=== PATIENT | male | born 1980 | race Caucasian/White ===

== ENCOUNTER 2017-06-23 09:54 | Emergency (ER) | payer MEDICAID ==
[~2017-06-23] VITALS: Ht 182.9 cm; Wt 90.0 kg
[~2017-06-23 09:54] MED LIST: DIAZ5 PO; IBUP-232 PO
[2017-06-23 09:55] VITALS: BP 128/70; PULSE 68; RESP 16; TEMP 98.6; O2SAT 98
--- NOTE | 2017-06-23 10:21 | PD ---
HPI Chief Complaint: Headache Time Seen by Provider: 10:06 Travel History International Travel<30 days: No Contact w/Intl Traveler<30days: No Traveled to known affect area: No History of Present Illness HPI 36-year-old male complains of headache. Patient has history of traumatic brain injury and was seen at [facility] on May 30, 2017. Patient reportedly has bilateral intracranial hemorrhage. Patient was observed and discharged subsequently. Patient states that he has intermittent headache and vomiting since then. Patient had trouble with speech yesterday but not today. Patient has not been able to follow-up with a physician after discharge. Patient was given prescription for gabapentin and has been taking Tylenol for headache. Patient states that headache aching headache diffuse over the head. Patient states that headache has been intermittent. Patient denies any visual change. Patient denies any neck pain. Patient denies any chest pain or shortness of breath. Patient denies abdominal pain. Patient denies any fever chills. Patient denies any focal weakness or numbness of extremity. [facility] Social History Alcohol Use: No Tobacco Use: Yes Substance Use: Yes (pot) Allergies-Medications (Allergen,Severity, Reaction): Coded Allergies: No Known Allergies (Unverified Adverse Reaction, Unknown, 06/23/17) Reported Meds & Prescriptions Reported Meds & Active Scripts Active Ibuprofen 600 Mg Tab 600 Mg PO Q6H PRN Valium (Diazepam) 5 Mg Tab 5 Mg PO TID PRN Review of Systems General / Constitutional: No: Fever Eyes: No: Visual changes HENT: Positive: Headaches Cardiovascular: No: Chest Pain or Discomfort Respiratory: No: Shortness of Breath Gastrointestinal: Positive: Nausea, Vomiting, No: Abdominal Pain Genitourinary: No: Dysuria Musculoskeletal: No: Pain Skin: No Rash Neurologic: No: Weakness Psychiatric: No: Depression Endocrine: No: Polydipsia Hematologic/Lymphatic: No: Easy Bruising Physical Exam Narrative GENERAL: Well-nourished, well-developed patient. SKIN: Focused skin assessment warm/dry. HEAD: Normocephalic. EYES: No scleral icterus. No injection or drainage. Pupils 3 mm equal reactive. NECK: Supple, trachea midline. No JVD or lymphadenopathy. No neck tenderness. No meningismus. CARDIOVASCULAR: Regular rate and rhythm without murmurs, gallops, or rubs. RESPIRATORY: Breath sounds equal bilaterally. No accessory muscle use. GASTROINTESTINAL: Abdomen soft, non-tender, nondistended. MUSCULOSKELETAL: No cyanosis, or edema. BACK: Nontender without obvious deformity. No CVA tenderness. Neurologic exam: Patient's awake and alert oriented 3. No obvious focal neurological deficit. Data Data Last Documented VS Vital Signs Date Time Temp Pulse Resp B/P (MAP) Pulse Ox O2 Delivery O2 Flow Rate FiO2 06/23/17 10:30 Room Air 06/23/17 09:55 98.6 68 16 128/70 (89) 98 Orders Orders Complete Blood Count With Diff (06/23/17 10:12) Comprehensive Metabolic Panel (06/23/17 10:12) Prothrombin Time / Inr (Pt) (06/23/17 10:12) Act Partial Throm Time (Ptt) (06/23/17 10:12) Ct Brain W/O Iv Contrast(Rout) (06/23/17 10:12) Iv Access Insert/Monitor (06/23/17 10:12) Ecg Monitoring (06/23/17 10:12) Oximetry (06/23/17 10:12) Labs Laboratory Tests Test 06/23/17 10:24 White Blood Count 6.0 TH/MM3 Red Blood Count 4.67 MIL/MM3 Hemoglobin 15.0 GM/DL Hematocrit 41.4 % Mean Corpuscular Volume 88.5 FL Mean Corpuscular Hemoglobin 32.1 PG Mean Corpuscular Hemoglobin Concent 36.2 % Red Cell Distribution Width 12.6 % Platelet Count 209 TH/MM3 Mean Platelet Volume 7.3 FL Neutrophils (%) (Auto) 56.0 % Lymphocytes (%) (Auto) 31.0 % Monocytes (%) (Auto) 10.0 % Eosinophils (%) (Auto) 2.0 % Basophils (%) (Auto) 1.0 % Neutrophils # (Auto) 3.4 TH/MM3 Lymphocytes # (Auto) 1.9 TH/MM3 Monocytes # (Auto) 0.6 TH/MM3 Eosinophils # (Auto) 0.1 TH/MM3 Basophils # (Auto) 0.1 TH/MM3 CBC Comment AUTO DIFF Prothrombin Time 10.3 SEC Prothromb Time International Ratio 1.0 RATIO Activated Partial Thromboplast Time 24.6 SEC Blood Urea Nitrogen 13 MG/DL Creatinine 0.95 MG/DL Random Glucose 118 MG/DL Total Protein 7.8 GM/DL Albumin 4.2 GM/DL Calcium Level 9.1 MG/DL Alkaline Phosphatase 61 U/L Aspartate Amino Transf (AST/SGOT) 45 U/L Alanine Aminotransferase (ALT/SGPT) 31 U/L Total Bilirubin 0.6 MG/DL Sodium Level 139 MEQ/L Potassium Level 4.8 MEQ/L Chloride Level 106 MEQ/L Carbon Dioxide Level 27.4 MEQ/L Anion Gap 6 MEQ/L Estimat Glomerular Filtration Rate 91 ML/MIN MDM Medical Decision Making Medical Screen Exam Complete: Yes Emergency Medical Condition: Yes Interpretation(s) Last Impressions Head CT 06/23/17 1012 Signed Impressions: Service Date/Time: Friday, June 23, 2017 10:20 - CONCLUSION: No acute disease. Mushtaq Alonzo MD 11:10 AM. CBC within normal limit. CMP within normal limit. Differential Diagnosis Differential diagnosis including postconcussion syndrome, intracranial hemorrhage, dehydration, electrolyte imbalance. Narrative Course 36-year-old male with intermittent headache vomiting. History of TBI. Diagnosis Primary Impression: Postconcussion syndrome Patient Instructions: General Instructions Additional Instructions: Zofran as needed for nausea vomiting. Tylenol or ibuprofen for headache. Follow-up with neurologist and local physician. Med/Other Pt SpecificInfo: Prescription(s) given Scripts Promethazine (Phenergan) 25 Mg Tablet 25 MG PO Q6H Y for NAUSEA OR VOMITING, #20 TAB 0 Refills Prov: Teja Jaquez MD 06/23/17 Ondansetron Odt (Zofran Odt) 4 Mg Tab 4 MG SL Q6HR Y for Nausea/Vomiting, #12 TAB 0 Refills Prov: Teja Jaquez MD 06/23/17 Disposition: 01 DISCHARGE HOME Condition: Stable Teja Jaquez MD Jun 23, 2017 10:21
--- NOTE | 2017-06-23 10:39 | RADRPT ---
EXAM DATE/TIME: 06/23/2017 10:20 [place] COMPARISON: No previous studies available for comparison. INDICATIONS : Headache with nausea, vomiting. RADIATION DOSE: 56.35 CTDIvol (mGy) MEDICAL HISTORY : Recent skating accident pt in icu, marijuana SURGICAL HISTORY : ENCOUNTER: Initial ACUITY: 2 days PAIN SCALE: 10/10 LOCATION: Bilateral cranial TECHNIQUE: Multiple contiguous axial images were obtained of the head. Using automated exposure control and adj ustment of the mA and/or kV according to patient size, radiation dose was kept as low as reasonably a chievable to obtain optimal diagnostic quality images. DICOM format image data is available electro nically for review and comparison. FINDINGS: CEREBRUM: The ventricles are normal for age. No evidence of midline shift, mass lesion, hemorrhage or acute in farction. No extra-axial fluid collections are seen. POSTERIOR FOSSA: The cerebellum and brainstem are intact. The 4th ventricle is midline. The cerebellopontine angle i s unremarkable. EXTRACRANIAL: The visualized portion of the orbits is intact. SKULL: The calvaria is intact. No evidence of skull fracture. CONCLUSION: No acute disease. Mushtaq Alonzo MD on June 23, 2017 at 10:34 Board Certified Radiologist. This report was verified electronically.
[2017-06-23 10:49] LABS: AUTOMATED NEUTROPHIL # 3.4 TH/MM3 (1.8-7.7); BASOPHIL # 0.1 TH/MM3 (0-0.2); EOSINOPHIL # 0.1 TH/MM3 (0-0.4); HEMATOCRIT 41.4 % (39.0-51.0); LYMPHOCYTE # 1.9 TH/MM3 (1.0-4.8); MEAN CELL VOLUME 88.5 FL (80.0-100.0); MEAN CORPUSCULAR HEMOGLOBIN 32.1 PG (27.0-34.0); MEAN PLATELET VOLUME 7.3 FL (7.0-11.0); MONOCYTE # 0.6 TH/MM3 (0-0.9); PLATELET COUNT 209 TH/MM3 (150-450); RED BLOOD COUNT 4.67 MIL/MM3 (4.50-5.90); RED CELL DISTRIBUTION WIDTH 12.6 % (11.6-17.2)
[2017-06-23 10:51] LABS: MEAN CORPUSCULAR HGB CONC 36.2 % (32.0-36.0)
[2017-06-23 10:53] LABS: PROTHROMBIN TIME - PATIENT 10.3 SEC (9.8-11.6)
[2017-06-23 11:05] LABS: ALKALINE PHOSPHATASE 61 U/L (45-117); TOTAL BILIRUBIN ADULT 0.6 MG/DL (0.2-1.0); TOTAL PROTEIN 7.8 GM/DL (6.4-8.2)
[2017-06-23 11:06] LABS: ALBUMIN 4.2 GM/DL (3.4-5.0); ALT (GPT) 31 U/L (12-78); BICARBONATE 27.4 MEQ/L (21.0-32.0); BLOOD UREA NITROGEN 13 MG/DL (7-18); CALCIUM 9.1 MG/DL (8.5-10.1); CHLORIDE 106 MEQ/L (98-107); CREATININE 0.95 MG/DL (0.60-1.30); GLOMERULAR FILTRATION RATE 91 ML/MIN (>89); GLUCOSE,RANDOM 118 MG/DL (74-106); SODIUM (NA) 139 MEQ/L (136-145)
[2017-06-23 11:07] LABS: AST (GOT) 45 U/L (15-37)
[2017-06-23] MEDS ORDERED: PROM25TA10 PO (11:12)
[2017-06-23] MEDS ORDERED: ZOFR4TAB3 SL (11:12)
== END 2017-06-23 11:33 | disposition home or self-care (01) ==
LOC: NEPE 09:54
DX: F07.81 Postconcussional syndrome (principal); Z87.820 Personal history of traumatic brain injury; Z72.0 Tobacco use
CPT/HCPCS: 70450; 80053; 85025; 85610; 85730; 99284